=== PATIENT | female | born 2000 | race Caucasian/White ===

== ENCOUNTER 2018-11-25 13:23 | Emergency (ER) | payer OTHER ==
[2018-11-25 13:32] VITALS: BP 174/97
--- NOTE | 2018-11-25 14:01 | Emergency Department Report ---
ED Dysuria HPI - HPI Chief Complaint: Vaginal Bleeding Stated Complaint: BLEEDING 3WKS/ABD PAIN/CLOTTING Time Seen by Provider: 11/25/18 13:52 Severity: Moderate Symptoms: Dysuria: No, Frequency: No, Suprapubic Pain: No, Flank Pain: No, Fever: No, Hematuria: No, Abdominal Pain: No, Previous UTI's: No Other History: 18 yo female who has been having abnormal vag bleeding since last summer. she went to obgyn who put her on bcp- so pt wants a new obgyn. pt educated on role of hormones in dub. ED Review of Systems ROS: Stated complaint: BLEEDING 3WKS/ABD PAIN/CLOTTING Other details as noted in HPI Comment: All other systems reviewed and negative Constitutional: denies: see HPI Eyes: denies: as per HPI, eye pain ENT: denies: throat pain Respiratory: denies: cough Cardiovascular: denies: orthopnea Endocrine: denies: flushing Gastrointestinal: denies: abdominal pain, nausea, vomiting Genitourinary: as per HPI, abnormal menses. denies: urgency Musculoskeletal: denies: back pain Skin: denies: rash Neurological: denies: headache Psychiatric: denies: depression Hematological/Lymphatic: denies: as per HPI, easy bleeding ED Past Medical Hx - Past Medical History Previous Medical History?: Yes Additional medical history: PCOS - Surgical History Past Surgical History?: No - Family History Family history: no significant - Social History Smoking Status: Never Smoker Substance Use Type: None Dysuria Exam - Exam General: Vital signs noted. No distress. Alert and acting appropriately. Exam: Yes Moist Mucous Membranes, No CVA Tenderness, No Abdominal Tenderness, No Rigidity or Guarding Exam: s1s2. hr 90 on exam. lungs cta. abd snt. not concerned for sti ED Course Vital Signs 11/25/18 13:28 Temperature 97.6 F Pulse Rate 111 H Respiratory 18 Rate Blood Pressure 174/97 O2 Sat by Pulse 98 Oximetry ED Medical Decision Making - Lab Data Result diagrams: 11/25/18 14:00 11/25/18 14:00 - Medical Decision Making h/h normal dub for months discussed appropriate treatment plan with pt follow up provided Labs 11/25/18 11/25/18 14:00 14:00 WBC 11.9 H RBC 4.60 Hgb 12.9 Hct 38.0 MCV 83 MCH 28 MCHC 34 RDW 13.6 Plt Count 567 H Sodium 136 L Potassium 4.0 Chloride 100.6 Carbon Dioxide 22 Anion Gap 17 BUN 7 Creatinine 0.5 L Estimated GFR > 60 BUN/Creatinine Ratio 14 Glucose 125 H Calcium 9.4 - Differential Diagnosis dub ro preg Critical care attestation.: If time is entered above; I have spent that time in minutes in the direct care of this critically ill patient, excluding procedure time. ED Disposition Clinical Impression: DUB (dysfunctional uterine bleeding) Disposition: TO HOME OR SELFCARE Is pt being admited?: No Does the pt Need Aspirin: No Condition: Stable Instructions: Dysfunctional Uterine Bleeding (ED) Additional Instructions: HYDRATE WELL WITH WATER DIET AND ACTIVITY TOLERATED FOLLOW UP OBGYN REFERRAL BELOW Referrals: HILARY GONZALEZ MD [Staff Physician] - 3-5 Days Time of Disposition: 15:02
[2018-11-25 14:32] LABS: BUN/Creatinine Ratio 14; Blood Urea Nitrogen 7 mg/dL (7-17); Calcium 9.4 mg/dL (8.4-10.2); Hemolysis Index 5
[2018-11-25 14:49] LABS: Hemoglobin 12.9 gm/dl (10.1-14.3); Mean Corpuscular HGB Conc 34 % (30-34); Mean Corpuscular Volume 83 fl (79-97); Platelet Count 567 K/mm3 (140-440); Red Cell Distribution Width 13.6 % (13.2-15.2)
[2018-11-25 15:38] LABS: HCG Qualitative,Urine Negative (Negative)
[2018-11-25 15:40] LABS: Bilirubin,Urine NEG (Negative); Blood,Urine LG (Negative); Color,Urine Yellow (Yellow); Protein,Urine <15 mg/dL mg/dL (Negative); Urobilinogen,Urine < 2.0 mg/dL (<2.0)
[2018-11-25 15:41] LABS: RBC,Urine > 182.0 /HPF (0.0-6.0)
== END 2018-11-25 15:42 | disposition home or self-care (01) ==
LOC: ED 13:23
DX: N93.8 Other specified abnormal uterine and vaginal bleeding (principal); E28.2 Polycystic ovarian syndrome
CPT/HCPCS: 36415; 80048; 81001; 81025; 85027; 99283